=== PATIENT | female | born 1990 | race Hispanic/Latino ===

== ENCOUNTER 2021-10-23 18:18 | Emergency (ER) | payer OTHER ==
[2021-10-23 21:09] LABS: Absolute Lymphocytes (CBC) 2.8 K/uL (0.7-4.9); Hematocrit 41.7 % (36.0-45.0); Lymphocytes % 20.3 % (15.3-44.8); MPV 9.1 fL (7.6-11.3); RBC Red Blood Cell Count 4.36 M/uL (3.86-4.86)
[2021-10-23] MEDS ORDERED: ACETAMINOPHEN 500 MG TAB ONE (22:03)
[2021-10-23 22:15] LABS: BUN Blood Urea Nitrogen 12 mg/dL (7-18); Bicarbonate 24 mmol/L (21-32); Glucose Level 93 mg/dL (74-106); HCG, Quantitative 218 mIU/mL (1-3); Potassium 3.5 mmol/L (3.5-5.1); Sodium Level 137 mmol/L (136-145)
[2021-10-23 23:48] LABS: Urine Blood Trace-intact (Negative); Urine Glucose Negative (Negative); Urine Protein Negative (Negative); Urine Specific Gravity >=1.030 (1.005-1.030); Urine pH 5.5 (5.0-7.0)
[2021-10-23 23:53] LABS: Urine Specific Gravity/Preg >1.030 (1.005-1.030)
--- NOTE | 2021-10-23 23:59 | ER ---
Nurse's Notes [facility] Name: Maryann Enamorado Age: 31 yrs Sex: Female : 1990 Arrival Date: 10/23/2021 Time: 18:26 Bed 24 Private MD: Diagnosis: Threatened Presentation: 10/23 19:39 Chief complaint: Patient states: 1 month with lower abdominal pain that ld1 started today 1700; pain that is not cramps. 3 with 2 living babies with healthy previous pregnancies. Coronavirus screen: Vaccine status: Patient reports receiving the 2nd dose of the covid vaccine. Client denies travel out of the [place] in the last 14 days. Ebola Screen: Patient negative for fever greater than or equal to 101.5 degrees Fahrenheit, and additional compatible Ebola Virus Disease symptoms Patient denies exposure to infectious person. Patient denies travel to an Ebola-affected area in the 21 days before illness onset. Initial Sepsis Screen: Does the patient meet any 2 criteria? No. Patient's initial sepsis screen is negative. Does the patient have a suspected source of infection? No. Patient's initial sepsis screen is negative. Risk Assessment: Do you want to hurt yourself or someone else? Patient reports no desire to harm self or others. Onset of symptoms was October 23, 2021. 19:39 Method Of Arrival: Ambulatory ld1 19:39 Acuity: CAROLIN 4 ld1 Triage Assessment: 19:44 General: Appears in no apparent distress. uncomfortable, slender, well groomed, well ld1 developed, well nourished, Behavior is calm, cooperative, appropriate for age. Pain: Complains of pain in abdomen. SCOOPER: 19:44 LMP 09/12/2021 ld1 21:00 3, Full Term 2, Living 2, LMP 09/14/2021, Verified, EDC 06/21/2022, cp Gestational age from LMP: 5 weeks 6 days Historical: - Allergies: 19:43 seasonal allergies; ld1 - Home Meds: 19:44 None [Active]; ld1 - PMHx: 19:44 None; ld1 - Immunization history:: Adult Immunizations up to date. - Social history:: Smoking status: Patient denies any tobacco usage or history of. Screenin:39 Abuse screen: Denies threats or abuse. Denies injuries from another. Nutritional ab2 screening: No deficits noted. Tuberculosis screening: No symptoms or risk factors identified. Fall Risk None identified. Assessment: 20:37 General: Appears in no apparent distress. comfortable. General: Behavior is calm, ab2 cooperative, appropriate for age. Pain: Complains of pain in suprapubic area Pain currently is 7 out of 10 on a pain scale. Neuro: No deficits noted. Level of Consciousness is awake, alert, obeys commands, Oriented to person, place, time, situation, Appropriate for age Enrollment Representative are equal bilaterally Moves all extremities. Gait is steady, Speech is normal, Facial symmetry appears normal. Cardiovascular: No deficits noted. Denies chest pain, shortness of breath, Heart tones S1 S2 present Patient's skin is warm and dry. Respiratory: No deficits noted. Airway is patent Breath sounds are clear bilaterally. GI: Abdomen is round non-distended, Bowel sounds present X 4 quads. Abdomen is tender to palpation in right lower quadrant and left lower quadrant Reports lower abdominal pain, Pt reports she is 4 weeks . 20:39 : No deficits noted. No signs and/or symptoms were reported regarding the ab2 genitourinary system. EENT: No deficits noted. No signs and/or symptoms were reported regarding the EENT system. Derm: No deficits noted. No signs and/or symptoms reported regarding the dermatologic system. Musculoskeletal: No deficits noted. No signs and/or symptoms reported regarding the musculoskeletal system. Vital Signs: 19:39 BP 125 / 72; Pulse 85; Resp 18; Temp 97.5; Pulse Ox 100% ; Weight 65.32 kg; Height 5 ld1 ft. 1 in. (154.94 cm); Pain 8/10; 21:48 BP 116 / 81; Pulse 83; Resp 16; Pulse Ox 97% on R/A; Pain 0/10; ab2 23:31 BP 110 / 76; Pulse 86; Resp 16 S; Pulse Ox 100% on R/A; lg3 19:39 Body Mass Index 27.21 (65.32 kg, 154.94 cm) ld1 ED Course: 18:26 Patient arrived in ED. am2 19:43 Triage completed. ld1 19:44 Arm band placed on right wrist. ld1 19:54 Baljinder Mcginnis PA is PHCP. cp 19:54 Baljinder Monsivais MD is Attending Physician. cp 20:39 Patient has correct armband on for positive identification. Bed in low position. Side ab2 rails up X2. 20:39 No provider procedures requiring assistance completed. ab2 20:58 Abo/rh Typing Sent. ab2 20:58 Basic Metabolic Panel Sent. ab2 20:58 CBC with Diff Sent. ab2 20:58 Quantitative Hcg Sent. ab2 21:12 Darcie Moreau, RN is Primary Nurse. lg3 21:48 Inserted saline lock: 18 gauge in right antecubital area, using aseptic technique. ab2 Blood collected. 22:28 US Transvaginal Ob In Process Unspecified. EDMS 10/24 00:17 IV discontinued, intact, bleeding controlled, No redness/swelling at site. lg3 Administered Medications: 10/23 22:02 Drug: Tylenol 1000 mg Route: PO; lg3 22:02 Follow up: Response: No adverse reaction lg3 22:32 Follow up: Response: No adverse reaction lg3 Outcome: 23:58 Discharge ordered by . cp 10/24 00:17 Discharged to home lg3 Condition: stable Discharge instructions given to patient, Prescriptions given X 2. 00:20 Patient left the ED. lg3 Signatures: Dispatcher [employer] EDAK Baljinder Mcginnis PA PA cp Pamella Serrano am2 Darcie Moreau, RN RN lg3 Ros Kendall RN RN ld1 Bunny Harvey ab2
--- NOTE | 2021-10-23 23:59 | EDPHYS ---
Physician Documentation [facility] Name: Maryann Enamorado Age: 31 yrs Sex: Female : 1990 Arrival Date: 10/23/2021 Time: 18:26 Bed 24 Private MD: ED Physician Baljinder Monsivais HPI: 10/23 21:00 This 31 yrs old Female presents to ER via Ambulatory with complaints of Pelvic cp Pain - +preg. 21:00 The patient presents to the emergency department with abdominal pain, of the right cp lower quadrant and left lower quadrant, that started today, described as crampy. 21:00 course: care: at a clinic, Leakage of Fluid: none appreciated, cp Ultrasound: the patient has not had an ultrasound. Associated signs and symptoms: Pertinent negatives: diarrhea, fever, vaginal bleeding, vaginal discharge, vomiting. Patient reports recent positive test about 2 weeks ago. Patient reports she has history of IUD placement but was recently removed after recent positive test. 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 - Social history:: Smoking status: Patient denies any tobacco usage or history of. ROS: 21:05 Constitutional: Negative for body aches, chills, fever, poor PO intake. cp 21:05 Eyes: Negative for injury, pain, redness, and discharge. cp 21:05 ENT: Negative for ear pain, sore throat, difficulty swallowing, difficulty handling secretions. 21:05 Cardiovascular: Negative for chest pain, palpitations. 21:05 Respiratory: Negative for cough, shortness of breath, wheezing. 21:05 Abdomen/GI: Positive for abdominal pain, abdominal cramps, of the right lower quadrant and left lower quadrant, Negative for vomiting, diarrhea, constipation. 21:05 Back: Negative for radiated pain. 21:05 Neuro: Negative for altered mental status, headache, weakness. 21:05 All other systems are negative. Exam: 21:10 Constitutional: The patient appears in no acute distress, alert, awake, cp non-diaphoretic, non-toxic, well developed, well nourished. 21:10 Head/Face: Normocephalic, atraumatic. cp 21:10 Eyes: Periorbital structures: appear normal, Conjunctiva: normal, no exudate, no injection, Sclera: no appreciated abnormality, Lids and lashes: appear normal, bilaterally. 21:10 ENT: External ear(s): are unremarkable, Nose: is normal, Mouth: Lips: moist, Oral mucosa: pink and intact, moist, Posterior pharynx: Airway: no evidence of obstruction, patent. 21:10 Chest/axilla: Inspection: normal. 21:10 Cardiovascular: Rate: normal, Rhythm: regular. 21:10 Respiratory: the patient does not display signs of respiratory distress, Respirations: normal, no use of accessory muscles, no retractions, labored breathing, is not present, Breath sounds: are clear throughout, no decreased breath sounds, no stridor, no wheezing. 21:10 Abdomen/GI: Inspection: abdomen appears normal, Bowel sounds: active, all quadrants, Palpation: abdomen is soft and non-tender, in all quadrants. 21:10 Back: pain, is absent, ROM is normal. 21:10 Neuro: Orientation: to person, place \T\ time. Mentation: is normal. Vital Signs: 19:39 BP 125 / 72; Pulse 85; Resp 18; Temp 97.5; Pulse Ox 100% ; Weight 65.32 kg; Height 5 ld1 ft. 1 in. (154.94 cm); Pain 8/10; 21:48 BP 116 / 81; Pulse 83; Resp 16; Pulse Ox 97% on R/A; Pain 0/10; ab2 23:31 BP 110 / 76; Pulse 86; Resp 16 S; Pulse Ox 100% on R/A; lg3 19:39 Body Mass Index 27.21 (65.32 kg, 154.94 cm) ld1 MDM: 20:00 Patient medically screened. [facility] 23:00 Differential diagnosis: STD, ectopic , ovarian cyst. 23:57 Data reviewed: vital signs, nurses notes, lab test result(s), radiologic studies, cp ultrasound. 23:57 Counseling: I had a detailed discussion with the patient and/or guardian regarding: the cp historical points, exam findings, and any diagnostic results supporting the discharge/admit diagnosis, lab results, radiology results, the need for outpatient follow up, an OB/Gyne specialist, to return to the emergency department if symptoms worsen or persist or if there are any questions or concerns that arise at home. ED course: VSS. Pain improved. Discussed results of labs and US that returned negative for IUP at this time. Will discharge to home for continued monitoring and recommend recheck hcg next 2-3 days. Patient instructed to return to ED worsening pain, vaginal bleeding. 10/23 20:39 Order name: Abo/rh Typing; Complete Time: 22:22 cp 10/23 20:39 Order name: Basic Metabolic Panel; Complete Time: 22:22 cp 10/23 20:39 Order name: CBC with Diff; Complete Time: 22:22 cp 10/23 22:22 Interpretation: Normal except: WBC 13.60; RDW 12.0; NEUT A 9.7. cp 10/23 20:39 Order name: Quantitative Hcg; Complete Time: 22:22 cp 10/23 22:22 Interpretation: Abnormal: HCGQ 218. cp 10/23 23:48 Order name: Urine Dipstick-Ancillary; Complete Time: 23:51 EDMS 10/23 23:50 Order name: Urine --Ancillary (enter results) ds4 10/23 20:39 Order name: IV Saline Lock; Complete Time: 20:58 cp 10/23 20:39 Order name: Labs collected and sent; Complete Time: 20:58 cp 10/23 20:39 Order name: NPO cp 10/23 20:39 Order name: Urine Dipstick-Ancillary (obtain specimen) cp 10/23 21:56 Order name: US Transvaginal Ob cp 10/23 23:50 Order name: Urine --Ancillary EDMS 10/23 23:52 Order name: Urine Microscopic Only cp 10/23 20:39 Order name: Urine Test (obtain specimen) cp Administered Medications: 22:02 Drug: Tylenol 1000 mg Route: PO; lg3 22:02 Follow up: Response: No adverse reaction lg3 22:32 Follow up: Response: No adverse reaction lg3 Disposition: 10/24 08:15 Co-signature as Attending Physician, Baljinder Monsivais MD I agree with the assessment and fili plan of care. Disposition Summary: 10/23/21 23:58 Discharge Ordered Location: Home cp Problem: new cp Symptoms: have improved cp Condition: Stable cp Diagnosis - Threatened cp Followup: cp - With: Private Physician - When: 2 - 3 days - Reason: Repeat Beta-HCG (48 Hours) Discharge Instructions: - Discharge Summary Sheet cp - Abdominal Pain During cp - Care cp - Threatened Miscarriage cp - Activity Restriction During cp Forms: - Medication Reconciliation Form cp - Thank You Letter cp - Antibiotic Education cp - Prescription Opioid Use cp Prescriptions: - 114-iron a-g-folate 1 20 mg iron- 1 mg Oral tablet - take 1 tablet by ORAL route once daily; 60 tablet; Refills: 0, Product cp Selection Permitted - Macrobid 100 mg Oral Capsule - take 1 capsule by ORAL route every 12 hours for 7 days; 14 capsule; Refills: 0, cp Product Selection Permitted Signatures: Dispatcher [employer] Baljinder Stearns MD MD cha Page, Corey, PA PA Darcie Calix, RN RN lg3 Ros Kendall RN RN ld1
[2021-10-24 00:24] VITALS: TEMP 97.5
[2021-10-24 00:27] VITALS: BP 110/76; O2SAT 100
[2021-10-24 00:29] LABS: Urine Bacteria >50 /HPF (<20); Urine Mucus 1+ /HPF (NONE SEEN)
--- NOTE | 2021-10-24 14:16 | RAD REPORT ---
EXAM DESCRIPTION: US - Transvaginal OB - 10/23/2021 11:14 pm CLINICAL HISTORY: 31 years Female ABD PAIN COMPARISON: None. TECHNIQUE: Real-time, todd scale and Doppler transabdominal sonographic imaging was performed to sammy luate the pelvis. Transvaginal images were acquired to better evaluate the adnexa and endometrium. FINDINGS: The uterus measures 7.1 x 4.6 x 5.6 cm. The endometrial stripe measures 6 mm in thickness without visualized intrauterine gestational sac, fluid, or abnormal vascularity. The right ovary contains the a 2.9 cm hemorrhagic cyst without torsion. There also appears to be a sl ightly hyperechoic focus in the right ovary which may represent a collapsed corpus luteum. The left o vary is unremarkable. There is trace free fluid in the cul-de-sac. IMPRESSION: No visualized intrauterine gestational sac. Right ovary contains a 2.[address] and possibly a collapsed corpus luteum. No ovarian torsion. Trace free fluid in the cul-de-sac. In the setting of a positive test, differential diagnosis would include early intrauterine pr egnancy, early ectopic , or missed . Recommend correlation with quantitative beta HC G. An intrauterine gestation should be visualized by a quantitative beta HCG of 2000. Electronically signed by: Amada Machado MD 10/23/2021 10:53 PM OPTICAL FABRICATION TECHNICIAN Due to temporary technical issues with the PACS/Fluency reporting system, reports are being signed by the in house radiologists without review as a courtesy to insure prompt reporting. The interpreting radiologist is fully responsible for the content of the report.
== END 2021-10-24 00:20 | disposition home or self-care (01) ==
LOC: ER 18:18
DX: O20.0 Threatened abortion (principal)
CPT/HCPCS: 36415; 76817; 80048; 81003; 81015; 81025; 84702; 85025; 86900; 86901; 87086; 87088; 99284

== ENCOUNTER 2022-01-09 20:12 | Emergency (ER) | payer OTHER ==
--- OUTSIDE RECORDS SUMMARY | 2022-01-09 20:18 | XMS REPORT | Continuity of Care Document ---
:1990 Author Organization [facility] t Address [address] [place] [address] Care Team Providers Name Role Phone Pcp, Patient Does Not Have A Primary Care Physician +[id number] Pob, Lab Main Attending Clinician Unavailable Caden HAYES Attending Clinician CADEN Attending Clinician Unavailable Payers Payer Name Policy Type Policy Number Effective Date Expiration Date S ource Problems Condition Condition Condition Status Onset Resolution Last Treating Co mments Source Name Details Category Date Date Treatment Clinician Date No known No known Disease Unive rs active active ity of problems problems [facility] Allergies, Adverse Reactions, Alerts Allergy Allergy Status Severity Reaction(s) Onset Inactive Treating Comm ents Source Name Type Date Date Clinician NO KNOWN Drug Active Univers ALLERGIE Class ity of S [facility] Social History Social Habit Start Date Stop Date Quantity Comments Source ASSERTION 2021-09-26 University of 00:00:00 [facility] History SDOH University o f Alcohol Std [facility] History SDIL University o f Alcohol Binge [facility] History SDIL University o f Alcohol Comment [facility] Exposure to Not sure University of SARS-CoV-2 [facility] (event[facility] Tobacco use and 2021-10-30 2021-10-30 Never used Universit y of exposure 00:00:00 00:00:00 [facility] Alcohol intake 2021-10-30 2021-10-30 Lifetime University of 00:00:00 00:00:00 non-drinker [facility]finding[facility] History SDOH 2021-10-30 2021-10-30 1 University o f Alcohol Frequency 00:00:00 00:00:00 [facility] edical [place] Sex Assigned At [birth year] Universit y of 00:00:00 00:00:00 [facility] Smoking Status Start Date Stop Date Source Never smoker [facility] Medications Ordered Filled Start Stop Current Ordering Indication Dosage Frequency Signature Comments Components Source Medication Medication Date Date Medication? Clinician (SIG) Name Name Yes Univers VITAMIN 1-14 ity of 00:00: [place] [facility] 0 Yes Univers VITAMIN 1-14 ity of 00:00: [place] [facility] 0 Yes Univers VITAMIN 1-14 ity of 00:00: [place] [facility] ibuprofen 2020-10- No Univers 800 mg 2-15 10-30 ity of tablet 00:00: 00:00 [place] 00 :00 [facility] Immunizations Ordered Filled Immunization Date Status Comments Sour e Immunization Name Name SARS-COV-2 COVID-19 2021-07-23 Completed Unive rsity of MODERNA VACCINE 00:00:00 [facility] SARS-COV-2 COVID-19 2021-07-23 Completed Unive rsity of MODERNA VACCINE 00:00:00 [facility] SARS-COV-2 COVID-19 2021-07-23 Completed Unive rsity of MODERNA VACCINE 00:00:00 [facility] SARS-COV-2 COVID-19 2021-06-23 Completed Unive rsity of MODERNA VACCINE 00:00:00 [facility] SARS-COV-2 COVID-19 2021-06-23 Completed Unive rsity of MODERNA VACCINE 00:00:00 [facility] SARS-COV-2 COVID-19 2021-06-23 Completed Unive rsity of MODERNA VACCINE 00:00:00 [facility] Vital Signs Vital Name Observation Time Observation Value Comments Source Systolic blood 2021-10-30 15:06:00 120 mm[Hg] Univer sity of pressure [facility] Diastolic blood 2021-10-30 15:06:00 76 mm[Hg] Unive rsity of pressure [facility] Heart rate 2021-10-30 15:06:00 74 /min Universi ty of [facility] Body temperature 2021-10-30 15:06:00 37 Mariela Univ ersity of [facility] Respiratory rate 2021-10-30 15:06:00 18 /min [facility] Body height 2021-10-30 15:06:00 154.9 cm [facility] Body weight 2021-10-30 15:06:00 71.578 kg [facility] BMI 2021-10-30 15:06:00 29.82 kg/m2 [facility] Procedures Procedure Date / Time Performed Performing Clinician Sourc e POCT TEST 2021-10-30 16:15:00 Caden Vida [facility] POCT URINALYSIS W/O 2021-10-30 16:15:00 Caden Vida [facility] SPECIFIC Critical access hospital Encounters Start End Encounter Admission Attending Care Care Encounter Source Date/Time Date/Time Type Type Clinicians Facility Department ID 2021-11-05 2021-11-05 Incident Response Coordinator Tray Mackenzie Lab Main [facility] 1.2.8 [id number] Univers 10:30:00 10:45:00 Visit [id number] [id number] Pa dical NAL [address] [place] [address] 2021-11-05 2021-11-[address] [facility] [id number] Univers 10:30:00 10:30:00 [id number] 2021-11-05 2021-11-05 Outpatient R VIDA NEGRETE [facility] [id number] Univers 10:30:00 10:30:[facility] 2021-11-01 2021-11-01 Incident Response Coordinator Tray Mackenzie Lab Main [facility] 1.2.8 40.114 [id number] Univers 09:00:00 09:15:00 Visit Vida Negrete [id number] ity sarah [id number] [id number] Pa dic[address] 2021-11-01 2021-11-[address] [facility] [id number] Univers 09:00:00 09:00:00 [id number] [facility] 2021-11-01 2021-11-01 Outpatient R VIDA NEGRETE [facility] [id number] Univers 09:00:00 09:00:[address] [facility] 2021-10-30 2021-10-30 Initial Vida Negrete [facility] [place] [id number] Univers 08:30:00 09:39:41 MARC [id number] i ty of Visit WOMEN'S [id number] [facility] [id number] [place] [address] Branch 2021-10-30 2021-10-30 Outpatient R VIDA NEGRETE [facility] [id number] Univers 08:30:00 09:39:41 [facility] Results Test Description Test Time Test Comments Results Result Comments Source POCT URINALYSIS W/O SPECIFIC GRAVITY 2021-10-30 16:16:00 Test Item Value Reference Range Interpretation Comme nts POCT PH U (test code = 3254) n/a 5-8 POCT U LEUK EST (test code = 3263) n/a Negative - Negative POCT U NIT (test code = 3262) n/a Negative - Negative POCT U PROT (test code = 3259) Negative Negative - Negative POCT U GLU (test code = 3256) Negative Negative - Negative POCT U KETONE (test code = 3258) n/a Negative - Negative POCT U BLD (test code = 3257) n/a Negative - Negative Lab Interpretation (test code = 91104-3) [id number] 16:15:00 Test Item Value Reference Range Interpretation Comments POCT PREG (test code = 1605) Positive On board controls acceptable with C Yes Line (test code = 3574) POCT PREG LOT # (test code = 3575) POCT PREG TEST DATE (test code = 3576) Lab Interpretation (test code = Normal 30363-2) [facility] [id number] 04:42:25 Test Item Value Reference Range Interpretation Comments HCG, QUANTITATIVE 331 MIU/ML SEE BELOW (test code = 2506) E XPECTED VALUES FOR HCG GST.AGE UNITS RANGE GST. AGE UNIT S RANGE3 WEEKS MIU/ML 6-71 10 WEEKS MIU/ML 46,509-186,[id number] WEEKS MIU/ML 10-750 12 WEEKS MIU/ML 27,832-210,612 5 WEEKS MIU/ML 217-7 ,138 14 WEEKS MIU/ML 13,950- 62,5306 WEEKS MIU/ML 158-31,795 15 WEEKS MIU/ML 12,039-70,9717 WEEKS MIU/ML 3,697-1 63,563 16 WEEKS MIU/ML 9,040-56,4518 W EEKS MIU/ML 32,065- 149,571 17 WEEKS MIU/ML 8,175-55,8689 W EEKS MIU/ML 63,803- 151,410 18 WEEKS MIU/ML 8,099-58,176MAL ES and NON- FE MALES . . . . . . . . MIU/ML [id number]-JWEERN USAL FEMALES . . . . . . . . . . . . MIU/M L <=7 UNLESS OT HERWISE INDICATED, ALL TESTING PERFORMED [facility], [facility] [address] [place] [id number] LABORATORY DIRE CTOR: BRANDON SO M.D. CLIA NUMBER [id number] CAP ACCREDITATION N O. [id number] HCG, [id number] 05:41:43 Test Item Value Reference Range Interpretation Comments HCG, QUANTITATIVE 708 MIU/ML SEE BELOW (test code = 2506) E XPECTED VALUES FOR HCG GST.AGE UNITS RANGE GST. AGE UNIT S RANGE3 WEEKS MIU/ML 6-71 10 WEEKS MIU/ML 46,509-186,9774 WEEKS MIU/ML 10-750 12 WEEKS MIU/ML 27,832-210,612 5 WEEKS MIU/ML 217-7 ,138 14 WEEKS MIU/ML 13,950- 62,5306 WEEKS MIU/ML 158-31,795 15 WEEKS MIU/ML 12,039-70,9717 WEEKS MIU/ML 3,697-1 63,563 16 WEEKS MIU/ML 9,040-56,4518 W EEKS MIU/ML 32,065- 149,571 17 WEEKS MIU/ML 8,175-55,8689 W EEKS MIU/ML 63,803- 151,410 18 WEEKS MIU/ML 8,099-58,176MAL ES and NON- FE MALES . . . . . . . . MIU/ML [id number] USAL FEMALES . . . . . . . . . . . . MIU/M L <=7 UNLESS OT HERWISE INDICATED, ALL TESTING PERFORMED [facility], [place] [place] [address] LABORATORY DIRE CTOR: BRANDON SO M.D. CLIA NUMBER [id number] CAP ACCREDITATION N O. [id number]
[2022-01-09 21:32] LABS: Urine Blood Negative (Negative); Urine Glucose Negative (Negative); Urine Protein Negative (Negative); Urine Specific Gravity 1.015 (1.005-1.030)
[2022-01-09 21:58] LABS: Absolute Lymphocytes (CBC) 2.8 K/uL (0.7-4.9); Hematocrit 39.7 % (36.0-45.0); Lymphocytes % 25.5 % (15.3-44.8); MPV 8.8 fL (7.6-11.3); RBC Red Blood Cell Count 4.17 M/uL (3.86-4.86)
[2022-01-09] MEDS ORDERED: ACETAMINOPHEN 500 MG TAB ONE (21:59)
[2022-01-09 22:15] LABS: BUN Blood Urea Nitrogen 11 mg/dL (7-18); Bicarbonate 26 mmol/L (21-32); Glucose Level 101 mg/dL (74-106); Potassium 4.2 mmol/L (3.5-5.1); Sodium Level 136 mmol/L (136-145)
[2022-01-09 22:29] LABS: HCG, Quantitative 14817 mIU/mL (1-3)
--- NOTE | 2022-01-10 00:02 | EDPHYS ---
Physician Documentation [facility] Name: Maryann Enamorado Age: 31 yrs Sex: Female : 1990 Arrival Date: 01/09/2022 Time: 20:16 Bed 28 Private MD: ED Physician Dwayne Funez HPI: 01/09 21:30 This 31 yrs old Female presents to ER via Ambulatory with complaints of cp Abdominal Pain. 21:30 The patient presents with abdominal pain in the lower abdomen. Onset: The cp symptoms/episode began/occurred 3 hour(s) ago. The symptoms do not radiate. Associated signs and symptoms: Pertinent positives: nausea, vaginal bleeding, Pertinent negatives: anorexia, blood in stools, constipation, diarrhea, dysuria, fever, vomiting. The symptoms are described as crampy. Severity of pain: in the emergency department the pain is unchanged. Patient reports taking home test that was positive. Patient reports she is approximately 2 months along in . INTERN RETAIL: 20:30 LMP 11/04/2021, Verified, EDC 08/11/2022, Gestational age from LMP: 9 weeks 4 ab2 days 21:42 4, Full Term 2, 1, Living 2, LMP 11/04/2021, Verified, EDC cp 08/11/2022, Gestational age from LMP: 9 weeks 5 days Historical: - Allergies: 20:28 No Known Allergies; ab2 - PMHx: 20:28 None; ab2 - PSHx: 20:28 None; ab2 - Immunization history:: Adult Immunizations up to date. - Social history:: Smoking status: Patient denies any tobacco usage or history of. ROS: 21:35 Constitutional: Negative for body aches, chills, fever, poor PO intake. cp 21:35 Eyes: Negative for injury, pain, redness, and discharge. cp 21:35 ENT: Negative for ear pain, sore throat, difficulty swallowing, difficulty handling secretions. 21:35 Cardiovascular: Negative for chest pain, palpitations. 21:35 Respiratory: Negative for cough, shortness of breath, wheezing. 21:35 Abdomen/GI: Positive for nausea, abdominal cramps, Negative for vomiting, diarrhea, constipation, anorexia. 21:35 Back: Negative for pain at rest, pain with movement. 21:35 : Positive for vaginal bleeding, Negative for urinary symptoms. 21:35 Neuro: Negative for altered mental status, headache, weakness. 21:35 All other systems are negative. Exam: 21:40 Constitutional: The patient appears in no acute distress, alert, awake, comfortable, cp non-toxic, well developed, well nourished. 21:40 Head/Face: Normocephalic, atraumatic. cp 21:40 Eyes: Periorbital structures: appear normal, Conjunctiva: normal, no exudate, no injection, Sclera: no appreciated abnormality, Lids and lashes: appear normal, bilaterally. 21:40 ENT: External ear(s): are unremarkable, Nose: is normal, Mouth: Lips: moist, Oral mucosa: moist, Posterior pharynx: Airway: no evidence of obstruction, patent. 21:40 Chest/axilla: Inspection: normal. 21:40 Cardiovascular: Rate: normal, Rhythm: regular. 21:40 Respiratory: the patient does not display signs of respiratory distress, Respirations: normal, no use of accessory muscles, no retractions, labored breathing, is not present, Breath sounds: are clear throughout, no decreased breath sounds, no stridor, no wheezing. 21:40 Abdomen/GI: Inspection: abdomen appears normal, Bowel sounds: active, all quadrants, Palpation: soft, in all quadrants, mild abdominal tenderness, in the right lower quadrant and left lower quadrant, rebound tenderness, is not appreciated, voluntary guarding, is not appreciated, involuntary guarding, is not appreciated. 21:40 Back: pain, is absent, ROM is normal. Vital Signs: 20:24 BP 132 / 69; Pulse 88; Resp 17; Temp 99.0(TE); Pulse Ox 100% on R/A; Weight 68.04 kg; ab2 Height 5 ft. 1 in. (154.94 cm); Pain 8/10; 21:47 BP 129 / 72; Pulse 86; Resp 18; Pulse Ox 100% on R/A; ld1 23:09 BP 122 / 84; Pulse 81; Resp 18; Pulse Ox 99% on R/A; ld1 23:50 BP 127 / 72; Pulse 76; Resp 18; Pulse Ox 100% on R/A; ld1 20:24 Body Mass Index 28.34 (68.04 kg, 154.94 cm) ab2 MDM: 21:39 Patient medically screened. cp 22:00 Differential diagnosis: Ectopic , non-specific abd pain, Ovarian Torsion, cp Pelvic Inflammatory Disease, Pyelonephritis, Ureterolithiasis, urinary tract infection. 01/10 00:00 Data reviewed: vital signs, nurses notes, lab test result(s), radiologic studies, cp ultrasound. 00:00 Counseling: I had a detailed discussion with the patient and/or guardian regarding: the cp historical points, exam findings, and any diagnostic results supporting the discharge/admit diagnosis, lab results, radiology results, the need for outpatient follow up, an OB/Gyne specialist, to return to the emergency department if symptoms worsen or persist or if there are any questions or concerns that arise at home. Response to treatment: the patient's symptoms have mildly improved after treatment, and as a result, I will discharge patient. 01/09 21:26 Order name: Abo/rh Typing; Complete Time: 23:54 cp 01/09 23:54 Interpretation: ABO/RH TYPE <p>O POSITIVE</p>; Reviewed. cp 01/09 21:26 Order name: Basic Metabolic Panel; Complete Time: 23:54 cp 01/09 23:54 Interpretation: Reviewed. cp 01/09 21:26 Order name: CBC with Diff; Complete Time: 23:54 cp 01/09 23:54 Interpretation: Normal except: WBC 11.0. cp 01/09 21:26 Order name: Quantitative Hcg; Complete Time: 23:54 cp 01/09 23:54 Interpretation: HCGQ 64640; Reviewed. 01/09 21:32 Order name: Urine Dipstick-Ancillary; Complete Time: 23:54 EDMS 01/09 23:54 Interpretation: Reviewed. cp 01/09 21:26 Order name: IV Saline Lock; Complete Time: 21:47 cp 01/09 21:26 Order name: Labs collected and sent; Complete Time: 21:47 cp 01/09 21:26 Order name: NPO; Complete Time: 21:47 cp 01/09 21:26 Order name: Urine Dipstick-Ancillary (obtain specimen); Complete Time: 21:47 cp 01/09 21:41 Order name: US Transvaginal Ob cp 01/10 00:20 Order name: Urine --Ancillary (enter results) cs9 01/09 21:26 Order name: Urine Test (obtain specimen); Complete Time: 21:47 cp Administered Medications: 01/09 21:59 Drug: Tylenol 1000 mg Route: PO; ld1 01/10 00:32 Follow up: Response: No adverse reaction tw5 Disposition Summary: 01/10/22 00:01 Discharge Ordered Location: Home cp Problem: new cp Symptoms: have improved cp Condition: Stable cp Diagnosis - Threatened cp Followup: cp - With: Private Physician - When: 1 week - Reason: Recheck today's complaints Discharge Instructions: - Discharge Summary Sheet cp - Abdominal Pain During cp - Care cp - Threatened Miscarriage cp - Vaginal Bleeding During , First Trimester cp - Activity Restriction During cp Forms: - Medication Reconciliation Form cp - Thank You Letter cp - Antibiotic Education cp - Prescription Opioid Use cp Prescriptions: - 114-iron a-g-folate 1 20 mg iron- 1 mg Oral tablet - take 1 tablet by ORAL route once daily; 60 tablet; Refills: 0, Product cp Selection Permitted Addendum: 01/11/2022 07:40 Co-signature as Attending Physician, Dwayne Funez MD. m h7 Signatures: Dispatcher [employer] EDMS Baljinder Mcginnis PA PA cp Dwayne Funez MD MD [id number] Ros Kendall RN RN [id number] Bunny Harvey Tiffany tw5 Corrections: (The following items were deleted from the chart) 01/09 20:29 20:28 Allergies: seasonal allergies; ab2 ab2
--- NOTE | 2022-01-10 00:02 | ER ---
Nurse's Notes [facility] Name: Maryann Enamorado Age: 31 yrs Sex: Female : 1990 Arrival Date: 01/09/2022 Time: 20:16 Bed 28 Private MD: Diagnosis: Threatened Presentation: 01/09 20:24 Chief complaint: Patient states: "im 2 months and im having lower abdominal ab2 pain that started approx 2 hours ago. When I was in the shower I noticed a little bit of bleeding." Pt denies any vaginal bleeding at this time. Pt denies vomiting but c/o nausea. Coronavirus screen: Vaccine status: Patient reports receiving the 2nd dose of the covid vaccine. Client denies travel out of the [place] in the last 14 days. At this time, the client does not indicate any symptoms associated with coronavirus-19. Ebola Screen: Patient negative for fever greater than or equal to 101.5 degrees Fahrenheit, and additional compatible Ebola Virus Disease symptoms Patient denies exposure to infectious person. Patient denies travel to an Ebola-affected area in the 21 days before illness onset. No symptoms or risks identified at this time. Initial Sepsis Screen: Does the patient meet any 2 criteria? No. Patient's initial sepsis screen is negative. Does the patient have a suspected source of infection? No. Patient's initial sepsis screen is negative. Risk Assessment: Do you want to hurt yourself or someone else? Patient reports no desire to harm self or others. Onset of symptoms is unknown. 20:24 Method Of Arrival: Ambulatory ab2 20:24 Acuity: CAROLIN 3 ab2 Triage Assessment: 20:29 General: Appears in no apparent distress. uncomfortable, Behavior is calm, cooperative, ab2 appropriate for age. Pain: Complains of pain in right lower quadrant and left lower quadrant Pain currently is 8 out of 10 on a pain scale. Neuro: Level of Consciousness is awake, alert, obeys commands, Oriented to person, place, time, situation, Appropriate for age. Cardiovascular: No deficits noted. GI: Reports lower abdominal pain, cramping, nausea. TE[employer]ER [employer]ILY [employer]ENCE: 20:30 LMP 11/04/2021, Verified, EDC 08/11/2022, Gestational age from LMP: 9 weeks 4 ab2 days 21:42 4, Full Term 2, 1, Living 2, LMP 11/04/2021, Verified, EDC cp 08/11/2022, Gestational age from LMP: 9 weeks 5 days Historical: - Allergies: 20:28 No Known Allergies; ab2 - PMHx: 20:28 None; ab2 - PSHx: 20:28 None; ab2 - Immunization history:: Adult Immunizations up to date. - Social history:: Smoking status: Patient denies any tobacco usage or history of. Screenin:47 Abuse screen: Denies threats or abuse. Denies injuries from another. Nutritional ld1 screening: No deficits noted. Tuberculosis screening: No symptoms or risk factors identified. Fall Risk None identified. Assessment: 21:47 General: Appears in no apparent distress. comfortable, Behavior is calm, cooperative, ld1 appropriate for age. Pain: Complains of pain in abdomen Pain does not radiate. Pain currently is 7 out of 10 on a pain scale. Quality of pain is described as aching, crampy. Neuro: Level of Consciousness is awake, alert, obeys commands, Oriented to person, place, time, situation. Cardiovascular: Capillary refill < 3 seconds Patient's skin is warm and dry. Respiratory: Airway is patent Respiratory effort is even, unlabored. GI: Abdomen is round non-distended, Bowel sounds present X 4 quads. Abd is soft Abdomen is tender to palpation X 4 quads. : Reports vaginal bleeding that is. EENT: No signs and/or symptoms were reported regarding the EENT system. Derm: No signs and/or symptoms reported regarding the dermatologic system. Musculoskeletal: No signs and/or symptoms reported regarding the musculoskeletal system. 23:09 Reassessment: Patient appears in no apparent distress at this time. No changes from ld1 previously documented assessment. Patient and/or family updated on plan of care and expected duration. Pain level reassessed. 23:50 Reassessment: Patient appears in no apparent distress at this time. No changes from ld1 previously documented assessment. 01/10 00:31 General: Reports "I am ready to go home and get something to eat I am starving.". tw5 Vital Signs: 01/09 20:24 BP 132 / 69; Pulse 88; Resp 17; Temp 99.0(TE); Pulse Ox 100% on R/A; Weight 68.04 kg; ab2 Height 5 ft. 1 in. (154.94 cm); Pain 8/10; 21:47 BP 129 / 72; Pulse 86; Resp 18; Pulse Ox 100% on R/A; ld1 23:09 BP 122 / 84; Pulse 81; Resp 18; Pulse Ox 99% on R/A; ld1 23:50 BP 127 / 72; Pulse 76; Resp 18; Pulse Ox 100% on R/A; ld1 20:24 Body Mass Index 28.34 (68.04 kg, 154.94 cm) ab2 ED Course: 20:16 Patient arrived in ED. ja2 20:28 Triage completed. ab2 20:29 Arm band placed on right wrist. ab2 21:24 Ros Kendall, RN is Primary Nurse. ld1 21:25 Baljinder Mcginnis PA is PHCP. cp 21:25 Dwayne Funez MD is Attending Physician. cp 21:47 Patient has correct armband on for positive identification. Placed in gown. Bed in low ld1 position. Call light in reach. Side rails up X2. school lunch monitor on. Pulse ox on. NIBP on. Door closed. Noise minimized. Warm blanket given. 21:47 Urine Microscopic Only Sent. ld1 21:47 No provider procedures requiring assistance completed. Inserted saline lock: 20 gauge ld1 in left antecubital area, using aseptic technique. Blood collected. 23:12 US Transvaginal Ob In Process Unspecified. EDMS 04 00:23 Urine --Ancillary (enter results) Sent. cs9 00:31 IV discontinued, intact, bleeding controlled, No redness/swelling at site. Pressure tw5 dressing applied. Administered Medications: 04 21:59 Drug: Tylenol 1000 mg Route: PO; ld1 04 00:32 Follow up: Response: No adverse reaction tw5 Outcome: 00:01 Discharge ordered by . cp 00:31 Discharged to home ambulatory. tw5 00:31 Condition: good 00:31 Discharge instructions given to patient, Instructed on discharge instructions, follow up and referral plans. Demonstrated understanding of instructions, follow-up care, medications, Prescriptions given X 1. 00:32 Patient left the ED. tw5 Signatures: Dispatcher [employer] EDMT Baljinder Mcginnis PA PA cp Ros Kendall RN RN ld1 Anabella Tobin Tiffany tw5 Lapine, Vikki 9 Bunny Harvey ab2 Corrections: (The following items were deleted from the chart) 01/09 20:29 20:28 Allergies: seasonal allergies; ab2 ab2
[2022-01-10 00:24] LABS: Urine Specific Gravity/Preg 1.015 (1.005-1.030)
[2022-01-10 01:51] VITALS: TEMP 99
[2022-01-10 02:04] VITALS: BP 127/72; O2SAT 100
--- NOTE | 2022-01-10 12:53 | RAD REPORT ---
EXAM DESCRIPTION: US - Transvaginal OB - 01/09/2022 11:10 pm CLINICAL HISTORY: 31 years, Female, lower abdomen pain COMPARISON: None. TECHNIQUE: Utilizing a transabdominal array transducer, real-time ultrasound evaluation of the femal e pelvis was performed. Color Doppler imaging was used to assess vascular flow. Transvaginal ultrasou nd was performed for further evaluation of the pelvis structures FINDINGS: The uterus measures 10.9 x 5.8 x 5.8 cm. The endometrial A gestational sac demonstrate n ormal shape and configuration with multiple measurements giving a ultrasonographic mean measurement o f 1.86 cm corresponding to a ultrasonographic gestational age of 6 weeks and 5 days a yolk sac was id entified measuring 0.27 cm. No pole and/or cardiac activity was identified. There is a hypoec hoic area/anechoic area adjacent to the right side gestational sac corresponding most likely to a sub chorionic hemorrhage.The right ovary measured 3.6 x 2.1 x 1.6 cm, the left ovary measures 2.2 x 2.3 x 2.8 cm. There is normal vascular flow and spectral waveforms with no evidence for torsion.No free fl uid was identified in the posterior cul-de-sac, no adnexal masses seen. IMPRESSION: INTRAUTERINE CORRESPONDING TO A ULTRASONOGRAPHIC GESTATIONAL AGE OF 6 WEEKS AN D 5 DAYS. NO CARDIAC ACTIVITY AND/OR POLE IS IDENTIFIED. ONLY YOLK SAC WAS IDENTIFIED. IF CONCERN FOLLOW-UP WITH SERIAL BETA-HCG AND/OR ULTRASOUND COULD BE OF ASSISTANCE. CRESCENTIC ANECHOIC/HYPOECHOIC STRUCTURE ADJACENT TO THE GESTATIONAL SAC CORRESPONDING TO A SUBCHRONI C HEMORRHAGE. NO ADNEXAL MASSES IDENTIFIED. Electronically signed by: Oz Sánchez MD 01/09/2022 11:28 PM CDT Due to temporary technical issues with the PACS/Fluency reporting system, reports are being signed by the in house radiologists without review as a courtesy to insure prompt reporting. The interpreting radiologist is fully responsible for the content of the report.
== END 2022-01-10 00:32 | disposition home or self-care (01) ==
LOC: ER 20:12
DX: O20.0 Threatened abortion (principal); Z3A.09 9 weeks gestation of pregnancy
CPT/HCPCS: 36415; 76817; 80048; 81003; 81025; 84702; 85025; 86900; 86901; 99284